=== PATIENT | female | born 2000 | race Two or more races ===

== ENCOUNTER 2024-03-17 12:11 | Emergency (ER) | payer OTHER ==
[~2024-03-17] VITALS: Ht 167.6 cm; Wt 90.7 kg
[2024-03-17 13:46] VITALS: BP 111/73; O2SAT 99
[2024-03-17] MEDS ORDERED: PEPCID AC20 MG PO (13:48)
[2024-03-17] MEDS ORDERED: SINGULAIR10 MG PO (13:48)
[2024-03-17 15:14] LABS: HEMATOCRIT 38.1 % (36.0-45.00); HEMOGLOBIN 13.2 g/dL (12.0-15.00); MEAN CELL VOLUME 84.5 fL (80.00-100.00); MEAN CORPUSCULAR HEMOGLOBIN 29.3 pg (27.00-32.0); MEAN CORPUSCULAR HGB CONC 34.7 g/dl (32.0-36.0); PLATELET COUNT 218 K/uL (150-450); RED BLOOD COUNT 4.51 M/uL (4.00-6.00); RED CELL DISTRIBUTION WIDTH 13.2 % (11.5-14.5)
== END 2024-03-17 19:13 | disposition home or self-care (01) ==
LOC: ER 12:13
DX: B34.9 Viral infection, unspecified (principal); Z20.822 Contact with and (suspected) exposure to COVID-19; Z91.013 Allergy to seafood